=== PATIENT | male | born 1995 | race American Indian/Alaskan Native ===

== ENCOUNTER 2020-08-04 20:10 | Emergency (ER) | payer OTHER ==
[2020-08-04] MEDS ORDERED: IBUPROFEN 800 MG TAB PO ONE (23:08)
--- NOTE | 2020-08-04 23:31 | XRay Report ---
CERVICAL SPINE AP AND LATERAL VIEWS INDICATION / CLINICAL INFORMATION: neck pain. COMPARISON: None available. FINDINGS: BONES/JOINT(S): No acute fracture or subluxation. No significant degenerative changes. SOFT TISSUES: No significant abnormality. ADDITIONAL FINDINGS: None. Signer Name: Keny Castellanos MD Signed: 08/04/2020 11:27 PM Workstation Name: [id number]
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
--- NOTE | 2020-08-05 03:27 | XRay Report ---
CHEST 2 VIEWS INDICATION / CLINICAL INFORMATION: Shortness of breath. COMPARISON: None available. FINDINGS: SUPPORT DEVICES: None. HEART / MEDIASTINUM: No significant abnormality. LUNGS / PLEURA: No significant pulmonary or pleural abnormality. No pneumothorax. ADDITIONAL FINDINGS: No significant additional findings. IMPRESSION: 1. No acute findings. Signer Name: Keny Castellanos MD Signed: 08/05/2020 3:22 AM Workstation Name: [id number]
[2020-08-05 03:50] VITALS: BP 122/68
== END 2020-08-05 03:49 | disposition home or self-care (01) ==
LOC: ED 20:10
DX: S16.1XXA Strain of muscle, fascia and tendon at neck level, initial encounter (principal); R06.00 Dyspnea, unspecified; J45.909 Unspecified asthma, uncomplicated; V89.2XXA Person injured in unspecified motor-vehicle accident, traffic, initial encounter; Y93.89 Activity, other specified; Y92.89 Other specified places as the place of occurrence of the external cause; Y99.8 Other external cause status
CPT/HCPCS: 71046; 72040; 99283